=== PATIENT | female | born 1965 | race African-American/Black ===

== ENCOUNTER → 2021-09-10 10:50 | Outpatient (CLI) | payer OTHER, SELFPAY ==
[2021-09-10 12:06] LABS: Absolute Lymphocyte Count 2.44 X10^3/uL (0.83-4.51); Absolute Neutrophil Count 1.6 X10^3/uL (2.0-7.7); Basophil# 0.04 X10^3/uL; Basophil% 0.8 % (0-1); Eosinophil# 0.07 X10^3/uL; Eosinophils% 1.4 % (0-5); Hematocrit 37.4 % (37-47); Hemoglobin 12.3 g/dL (12.0-15.0); Lymphocyte # 2.44 X10^3/ul (0.83-4.51); Lymphocyte % 50.5 % (19-41); Mean Corp Hgb Conc 32.9 g/dL (32-36); Mean Corpuscular Hgb 28.9 pg (27.0-32.0); Mean Platelet Vol. 12.7 fl (6.2-12.0); Monocyte# 0.64 X10^3/uL; Monocyte% 13.3 % (0-10); NRBC Flagged by Analyzer 0 % (0-5); Neutrophil # 1.63 X10^3/uL (2.7-7.7); Neutrophil % 33.8 % (47-70); Platelet Count 206 K/mm3 (150-450); RBC Distribution Width CV 14.2 % (11.6-14.6); RBC Distribution Width SD 45.1 fl (35.1-43.9); Red Blood Count 4.25 M/mm3 (4.2-5.4); White Blood Count 4.8 K/mm3 (4.4-11.0)
[2021-09-10 12:33] LABS: ALB/GLOB Ratio 0.7 RATIO (0.9-2.4); AST(SGOT) 20 U/L (15-37); Alanine Aminotransfer ALT/SGPT 28 U/L (13-56); Albumin, Serum 3.2 g/dL (3.2-5.0); Alkaline Phosphatase 72 U/L (45-117); Anion Gap 4 (5-15); BUN 15 mg/dL (7-18); BUN/Creat Ratio 19.5 RATIO (10-20); Calcium,Total 8.9 mg/dL (8.5-10.1); Chloride 107 mmol/L (98-107); Cholesterol 191 mg/dL (200); Creatinine, Serum 0.77 mg/dL (0.55-1.02); EST Glomerular Filtration Rate 83 mL/min (>60); Est Glom Filt Rate - Afr Amer 100 mL/min (>60); Globulin 4.8 g/dL (2.2-4.2); Glucose 90 mg/dL (74-106); High Density Lipoprotein 56 mg/dL; Potassium 4.1 mmol/L (3.5-5.1); Sodium Level 140 mmol/L (136-145); Thyroid Stim Hormone (TSH) 1.27 uIU/mL (0.358-3.74); Triglycerides 49 mg/dL; Very Low Density Lipoprotein 10 mg/dL (5-40)
[2021-09-10 12:42] LABS: Hemoglobin A1c 5.5 % (3.8-5.6)
== END ==
PROVIDERS: PCP Family Medicine; Visit Provider Registered Nurse
DX: Z00.00 Encounter for general adult medical examination without abnormal findings (principal)
CPT/HCPCS: 36415; 80053; 80061; 83036; 84443; 85025

== ENCOUNTER → 2021-09-24 16:30 | Outpatient (CLI) | payer OTHER, SELFPAY ==
--- NOTE | 2021-09-24 16:39 | RAD_ITS ---
INDICATION: TESTING FOR LATENT TUBERCULOSIS EXAMINATION/TECHNIQUE: X-RAY - XR Chest 2 Views COMPARISON: None. FINDINGS: LINES/DEVICES: None. The cardiomediastinal silhouette is within normal limits. No focal consolidations, effusions, or sizable pneumothorax. No masses. Osseous structures are grossly intact. RAD/Chest PA and Lateral IMPRESSION: Unremarkable chest radiograph. Electronically Signed: Ervin Stanley MD at 14:46 EST Tel , Service support ,
== END ==
PROVIDERS: PCP Family Medicine; Referring Provider Registered Nurse; Visit Provider Registered Nurse
DX: Z11.7 Encounter for testing for latent tuberculosis infection (principal)
CPT/HCPCS: 71046